=== PATIENT | male | born 1970 | race Caucasian/White ===

== ENCOUNTER 2020-11-26 19:15 | Emergency (ER) | payer OTHER, SELFPAY ==
[2020-11-26 20:09] VITALS: BP 167/96; PULSE 99; RESP 28; TEMP 38.2; O2SAT 95; BMI 32.5
[2020-11-26 20:12] VITALS: O2SAT 95
--- NOTE | 2020-11-26 20:26 | XRR_ITS ---
PROCEDURE INFORMATION: Exam: XR Chest Exam date and time: 11/26/2020 8:26 PM Age: 50 years old Clinical indication: Cough TECHNIQUE: Imaging protocol: XR of the chest. Views: 1 view. COMPARISON: No relevant prior studies available. FINDINGS: Lungs: Low lung volumes due to suboptimal inspiration. This causes crowding of the lung markings. Bilateral ground-glass pulmonary infiltrates noted. Pleural spaces: No pleural effusion. No pneumothorax. Heart/Mediastinum: No cardiomegaly. Bones/joints: Unremarkable. XR/XR chest 1V portable [id number] IMPRESSION: 1. Low lung volumes due to suboptimal inspiration. This causes crowding of the lung markings. 2. Bilateral ground-glass pulmonary infiltrates noted. Commonly reported imaging features of COVID-19 pneumonia are present. Other processes such as influenza pneumonia and organizing pneumonia, as can be seen with drug toxicity and connective tissue disease, can cause a similar imaging pattern. (Reference: Ian) REFERENCES: Ian Pressley et al., [employer] Society of [place] Expert Consensus Statement on Reporting Chest CT Findings Related to COVID-19. Endorsed by the Society of [employer] Radiology, the [place] [employer], and [employer]NA. Published July 21, 2019.
--- NOTE | 2020-11-26 20:29 | XRR_ITS ---
PROCEDURE INFORMATION: Exam: XR Abdomen Exam date and time: 11/26/2020 8:29 PM Age: 50 years old Clinical indication: Abdominal pain; Generalized; Prior surgery; Surgery date: 6+ months; Surgery type: Left hip; Additional info: Abd pain TECHNIQUE: Imaging protocol: XR of the abdomen. Views: 2 Views. Upright and supine views. COMPARISON: CR (CHEST, ) 11/26/2020 8:24 PM FINDINGS: Gastrointestinal tract: Nonobstructive intestinal gas pattern demonstrated. Intraperitoneal space: No free air. Bones/joints: Status post ORIF left femur. No acute osseous abnormality. XR/XR abdomen min 2V [id number] IMPRESSION: No acute abnormality demonstrated.
--- NOTE | 2020-11-26 20:30 | ED_ITS ---
HPI - COVID General: Chief Complaint: COVID symptoms Stated Complaint: Covid+ Results\Vomiting Time Seen by Provider: 11/26/20 20:25 Triage information: Has fever, cough or shortness of breath . Exposure to COVID + person last 14 days History of Present Illness: HPI Narrative: This patient is a 50-year-old male who presents to the emergency department complaint of nausea vomiting diarrhea. And fever. Patient states that he was recently diagnosed with Covid while in working in [place] but never had any respiratory symptoms. Patient states past several days has had nausea vomiting diarrhea complaint of fatigue he also felt like he got overheated while working he works as a boilermaker pipe fitter. Patient has cough. Will do medical evaluation treat as needed MD complaint: known COVID positive COVID 19 common symptoms: positive nausea, vomiting and diarrhea; negative fever(s), chills, non-productive cough, productive cough, dyspnea, fatigue, body aches, headache(s) or throat pain COVID 19 other sytmptoms: negative chest pain COVID Results: No Data to Display Review of Systems General: Reports: 10 or more systems reviewed and unremarkable except in HPI and below Const: Denies: fever(s), chills, body aches or fatigue Eyes: Denies: change in vision or blurry vision ENMT: Denies: throat pain, hoarseness or mouth pain Card: Denies: chest pain, palpitations, irregular heart rhythm, edema, swelling of feet/ankles or lightheadedness Resp: Denies: dyspnea, productive cough, non-productive cough, wheezing or pain on inspiration GI: Reports: nausea, vomiting and diarrhea; Denies: abdominal pain : Denies: flank pain, dysuria, urinary frequency, urinary urgency or urinary hesitancy Musc: Denies: neck pain, back pain, extremity pain, extremity swelling, joint pain, joint swelling, joint redness, joint warmth or limited range of motion Skin/Breast: Denies: rash, pruritus, erythema or skin tenderness Neuro: Denies: headache(s), numbness in extremities or weakness in extremities Psych: Denies: anxiety or depression Physical Exam Const: COMMON NORMALS: no acute distress, average body habitus, patient oriented x3, no limitations, healthy appearing, alert and well nourished HENMT: COMMON NORMALS: normocephalic, atraumatic, hearing grossly normal bilaterally, external ears normal, EAC's normal, TM's normal bilaterally, Normal external nose present, Normal nasal mucous membranes and turbinates present, moist oral mucous membranes, oropharynx normal, dentition normal and gingiva normal HEAD & SCALP: normocephalic and atraumatic NOSE: Normal external nose present and Normal nasal mucous membranes and turbinates present EXTERNAL EAR: Yes external ears normal EXTERNAL AUDITORY CANAL: EAC's normal TYMPANIC MEMBRANE: TM's normal bilaterally Neck/C-Spine: COMMON NORMALS: full ROM, no lymphadenopathy, supple, no meningeal signs, no JVD, Thyroid normal and No carotid bruits THYROID: Thyroid normal Chest: COMMONS NORMALS: normal inspection of the chest, normal palpation of entire chest wall, normal inspection of the breasts and normal palpation of the breasts Breast/axilla inspection: Yes normal inspection of the breasts BREAST/AXILLA PALPATION: Yes normal palpation of the breasts Resp: COMMON NORMALS: normal respiratory effort, No retractions, No use of accessory muscles, clear to auscultation bilaterally and percussion normal AUSCULTATION: clear to auscultation bilaterally PERCUSSION: percussion normal Cardio: COMMON NORMALS: no JVD, regular rate, regular rhythm, S1 normal heart sound present, S2 normal heart sound present, No gallops present (Cardio), No clicks present (Cardio), No murmurs present (Cardio), No rub (Cardio) and Peripheral pulses 2+ throughout RATE: regular rate RHYTHM: regular rhythm HEART SOUNDS: S1 normal heart sound present and S2 normal heart sound present PERIPHERAL PULSES: Peripheral pulses 2+ throughout GI: COMMON NORMALS: Normal to inspection, nondistended, normoactive bowel sounds present, Soft to palpation, non-tender, No hepatosplenomegaly present, no masses and no bruits PALPATION: Yes Soft to palpation and Yes No hepatosplenomegaly present : COMMON NORMALS: Yes no CVA tenderness BLADDER/KIDNEY EXAM: Yes no CVA tenderness Back/Pelvis: COMMON NORMALS: no CVA tenderness, thoracic and lumbar spine normal to inspection, no thoracic nor lumbar tenderness, thoraco-lumbar ROM normal and straight leg raise negative bilaterally Extremity: COMMON NORMALS: normal to inspection, full ROM, capillary refill normal, no joint enlargement, no clubbing, cyanosis or edema, no calf tenderness and no pedal edema Neuro: COMMON NORMALS: patient oriented x3 SENSORIUM/ORIENTATION: Yes alert MENINGEAL SIGNS: Yes no meningeal signs Course Reevaluation(s): Reevaluation #1: Negative valuation in the emergency room for any acute findings. Patient needs to continue with Covid precautions. Tylenol Motrin as needed as needed for fever pain. Get plenty of fluids orally. Get plenty rest. Follow-up with PCP in 3 to 5 days if not improved. For diarrhea patient should take only Pepto-Bismol to help slow the course. Patient be given Zofran for nausea Time: 21:52 Vital Signs: Vital signs: Vital Signs Temperature 100.7 F H 11/26/20 20:09 Pulse Rate 99 11/26/20 21:11 Respiratory Rate 17 11/26/20 21:11 Blood Pressure 130/78 11/26/20 21:11 Pulse Oximetry 94 11/26/20 21:11 MDM - COVID MDM Narrative: Medical decision making narrative: Negative valuation in the emergency room for any acute findings. Patient needs to continue with Covid precautions. Tylenol Motrin as needed as needed for fever pain. Get plenty of fluids orally. Get plenty rest. Follow-up with PCP in 3 to 5 days if not improved. For diarrhea patient should take only Pepto-Bismol to help slow the course. Patient be given Zofran for nausea Lab Data: Labs: Lab Results 11/26/20 11/26/20 Range/Units 21:00 21:00 WBC 3.7 L (4.0-10.0) 10^3/ uL RBC 4.99 (4.1-5.3) 10^6/u L Hgb 14.6 (11.7-16.6) g/dL Hct 41.9 L (42.0-52.0) % MCV 84.0 (80-94) fL MCH 29.3 (28.0-34.0) pg MCHC 34.8 (30.0-36.0) g/dL RDW 11.2 L (12.1-15.1) % Plt Count 159 (130-400) 10^3/c mm MPV 9.3 (7.4-10.4) fL Neut % (Auto) 77.7 % Lymph % (Auto) 13.6 % [place] % (Auto) 7.6 % Eos % (Auto) 0.0 % Baso % (Auto) 0.3 % Neut # (Auto) 2.87 (1.8-7.7) 10^3/u L Lymph # (Auto) 0.5 L (0.8-4.8) 10^3/u L [place] # (Auto) 0.3 (0.2-0.9) 10^3/u L Eos # (Auto) 0.0 (0.0-0.8) 10^3/u L Baso # (Auto) 0.0 (0.0-0.1) 10^3/u L Nucleated RBC % (a uto) 0 % Nucleated RBCs # 0.0 /100WBC Sodium 136 (136-145) mmol/L Potassium 4.3 (3.5-5.1) mmol/L Chloride 98 (98-107) mmol/L Carbon Dioxide 25 (22-29) mmol/L Anion Gap 17.3 (5-19) BUN 8 (6-20) mg/dL Creatinine 1.0 (0.7-1.2) mg/dL GFR Calculation 79.8 L (90-130) mL/min Glucose 104 (65-115) mg/dL Calculated Osmolal ity 281 L (285-295) mOsm/k g Calcium 7.7 L (8.5-10.5) mg/dL COVID Results: No Data to Display Discharge Plan Discharge Patient Disposition: Home Clinical Impression: Systemic viral illness, COVID-19 Condition: Stable Prescriptions: New ondansetron 4 mg tablet,disintegrating 4 mg PO DAILY PRN (Reason: nausea and vomiting) 4 Days Qty: 10 RF: 0 Discharge Orders: Discharge ED (Routine); Ordered 11/26/20 Ordered By: Tyson Villa Discharge Diet: Advance as tolerated Discharge Activity: Resume usual activity Patient Instructions: Opioid Safety Activity Restrictions/Additional Instructions: Negative valuation in the emergency room for any acute findings. Patient needs to continue with Covid precautions. Tylenol Motrin as needed as needed for fever pain. Get plenty of fluids orally. Get plenty rest. Follow-up with PCP in 3 to 5 days if not improved. For diarrhea patient should take only Pepto- Bismol to help slow the course. Patient be given Zofran for nausea Coding Level of Care Code ED Mining Support Worker for Chg Fwd Exam Comprehensive
[2020-11-26 20:41] VITALS: BP 128/79; PULSE 100; RESP 20; O2SAT 98
[2020-11-26] MEDS: acetaminophen 325 mg Tablet 650 MG PO (20:56)
[2020-11-26] MEDS: ondansetron 2 mg/ML SDV 2 mL 4 MG IVP (20:56)
[2020-11-26] MEDS: sodium chloride 0.9% 1,000 ML 999 ML IV (20:56)
[2020-11-26 21:11] VITALS: BP 130/78; PULSE 99; RESP 17; O2SAT 94
[2020-11-26 21:11] LABS: Basophils % 0.3 %; Hematocrit 41.9 % (42.0-52.0); Hemoglobin 14.6 g/dL (11.7-16.6); Lymphocytes # 0.5 10^3/uL (0.8-4.8); Lymphocytes % 13.6 %; Mean Corpuscular HGB Conc 34.8 g/dL (30.0-36.0); Mean Corpuscular Hemoglobin 29.3 pg (28.0-34.0); Mean Platelet Volume 9.3 fL (7.4-10.4); Monocytes # 0.3 10^3/uL (0.2-0.9); Monocytes % 7.6 %; Neutrophils # 2.87 10^3/uL (1.8-7.7); Neutrophils % 77.7 %; Nucleated Red Blood Cells % 0 %; Platelet Count 159 10^3/cmm (130-400); Red Blood Count 4.99 10^6/uL (4.1-5.3); Red Cell Distribution Width 11.2 % (12.1-15.1); White Blood Count 3.7 10^3/uL (4.0-10.0)
[2020-11-26 21:33] LABS: Anion Gap 17.3 (5-19); Blood Urea Nitrogen 8 mg/dL (6-20); Calcium 7.7 mg/dL (8.5-10.5); Carbon Dioxide 25 mmol/L (22-29); Chloride 98 mmol/L (98-107); Glomerular Filtration Rate 79.8 mL/min (90-130); Glucose 104 mg/dL (65-115); Osmolality Calculated 281 mOsm/kg (285-295); Potassium 4.3 mmol/L (3.5-5.1); Sodium 136 mmol/L (136-145)
[2020-11-26 21:56] VITALS: BP 131/78; PULSE 91; RESP 20
== END 2020-11-26 22:04 | disposition home or self-care (01) ==
PROVIDERS: Emergency Provider Emergency Medicine
DX: U07.1 COVID-19 (principal)
CPT/HCPCS: 71045; 74019; 80048; 85025; 87040; 96361; 96374; 99284; J2405; J7030